=== PATIENT | female | born 1990 | race Caucasian/White ===

== ENCOUNTER → 2020-03-31 | Outpatient (CLI) | payer OTHER ==
[2020-03-31 11:47] LABS: ABSOLUTE NEUTROPHILS 5.1 thou/uL (1.4-8.2); BASOPHILS 0.3 % (0.0-2.0); EOSINOPHILS 0.9 % (0.0-3.0); HEMOGLOBIN 13.9 gm/dL (12.0-15.0); LYMPHOCYTES 30.8 % (24.0-44.0); MCH 30.5 pg (26.0-34.0); MCHC 33.8 g/dL (28.0-37.0); MCV 90.2 fL (80.0-100.0); MONOCYTES 7.4 % (1.0-8.0); PLATELET COUNT 210 thou/uL (150-400); POLYS 60.6 % (36.0-66.0); RBC 4.54 mil/uL (4.20-5.00); RDW 12.9 % (10.5-14.5); WBC 8.3 thou/uL (4.0-11.0)
[2020-03-31 12:08] LABS: ALBUMIN 4.2 g/dL (3.4-5.0); ANION GAP 10 mmol/L (7-16); BUN 10 mg/dL (7-18); CALCIUM 9.5 mg/dL (8.5-10.1); CHLORIDE 104 mmol/L (98-107); CHOLESTEROL 143 mg/dL (<200); CO2 26 mmol/L (21-32); CREATININE 0.8 mg/dL (0.6-1.0); GLUCOSE 90 mg/dL (74-106); HDL CHOLESTEROL 79 mg/dL (>40); LDL CHOLESTEROL 58 mg/dL (<100); POTASSIUM 4.3 mmol/L (3.5-5.1); SGOT 10 U/L (15-37); SGPT 20 U/L (30-65); SODIUM 140 mmol/L (136-145); TC:HDL 1.8 Ratio (Not establshd); TOTAL BILIRUBIN 0.5 mg/dL (0.2-1.0); TOTAL PROTEIN 6.7 g/dL (6.4-8.2); TRIGLYCERIDE 30 mg/dL (<150); VLDL 6 mg/dL (<40)
[2020-04-01 13:08] LABS: ANA INTERPRETATION Negative (Negative)
== END ==
LOC: LAB 10:59
PROVIDERS: ATTEND Family Medicine
DX: M79.10 Myalgia, unspecified site (principal); R42 Dizziness and giddiness; E78.5 Hyperlipidemia, unspecified; M19.90 Unspecified osteoarthritis, unspecified site

== ENCOUNTER → 2020-04-16 | Outpatient (CLI) | payer OTHER | LOC: RAD 15:17 | PROVIDERS: ATTEND Family Medicine | DX: M54.5 Low back pain (principal); G89.29 Other chronic pain ==

== ENCOUNTER → 2020-08-11 | Outpatient (CLI) | payer OTHER ==
[~2020-08-11] MED LIST: ADDERALL XR 3030 MG PO; CLONAZEPAM 0.50.5 M1 PO; FLONASE 0.05%50 MCG NARES; LAMOTRIGINE100 MG PO; MELOXICAM15 MG PO; NALTREXONE HCL50 MG PO; SPIRONOLACTONE25 MG PO; TRAZODONE HCL100 MG PO; WOMEN'S DAILY1 EACH PO; ZYRTEC10 M5 PO
== END ==
LOC: LAB 05:52
PROVIDERS: ATTEND Student in an Organized Health Care Education/Training Program
DX: Z01.812 Encounter for preprocedural laboratory examination (principal); Z20.822 Contact with and (suspected) exposure to COVID-19

== ENCOUNTER 2020-08-13 06:26 | Day surgery (SDC) | payer OTHER ==
[~2020-08-13] VITALS: Ht 167.6 cm; Wt 64.9 kg
[2020-08-13 07:07] VITALS: BP 107/71
[2020-08-13 07:20] LABS: CALCIUM 8.4 mg/dL (8.5-10.1); CREATININE 0.8 mg/dL (0.6-1.0); POTASSIUM 4.3 mmol/L (3.5-5.1)
[2020-08-13 09:00] VITALS: BP 107/71
--- NOTE | 2020-08-14 12:29 | O ---
[facility] [place] [address] OPERATIVE REPORT Name: SHINE CHEN Room #: [place] [facility] [place].R.#: [id number] Admission: 08/13/20 Attend Phys: Tonny Wilkins, Discharge: 08/13/20 Date of : 86 Report #: [id number] THIS REPORT FOR: cc: Beulah Lin MD, Nora P. MD Barnthouse,Tonny Mirza MD ~ DOC #: [id number] Tonny Wilkins MD DATE OF SERVICE: 08/13/2020 PREOPERATIVE DIAGNOSIS: Moderate cervical dysplasia, CUAUHTEMOC 2. POSTOPERATIVE DIAGNOSIS: Moderate cervical dysplasia, CUAUHTEMOC 2 with final pathology pending. PROCEDURES DONE: Colposcopy with LEEP procedure and endocervical curettage. SURGEON: Tonny Wilkins MD. ANESTHESIA: General. Also, injection of 6 mL of 1% lidocaine with 1:100,000 epinephrine locally into the cervix around the LEEP procedure site. ESTIMATED BLOOD LOSS: None. COMPLICATIONS: None. DESCRIPTION OF PROCEDURE: The patient was taken to the operating room and placed in the supine position and given adequate anesthesia. She was placed in the stirrups. Compression stockings were applied. She was prepped and draped. A timeout was performed. A weighted speculum was placed in the posterior vagina and the anterior cervix was identified and gently grasped with an Allis clamp. Then, using a colposcopy the cervix was prepped with acetic acid and then Lugol solution. She had a small acetowhite area both anteriorly and posteriorly that were nonstaining. At this point, 6 mL of 1% lidocaine with 1:100,000 epinephrine were injected circumferentially around the cervix. Then, using the LEEP the entire lesion and transformation zone were removed both in the upper and lower portion. Endocervical curettage was performed. A ball-tip cautery was then used to further vaporize tissue for wider margin circumferentially and with a smooth cone bed of approximately 7 mm. There was excellent hemostasis, but Monsel's was applied to the cervical site for added postoperative hemostasis. There were no problems. The Allis clamp was removed from the cervix. It was hemostatic. The weighted speculum was removed. The sponge, needle and instrument counts were correct according to scrub nurse and circulating nurse. She had no complications. She was placed back in the supine position and taken to the recovery room in stable condition. [address] [address] OPERATIVE REPORT Name: SHINE CHEN Room #: [place] [facility] [place]ordana#: [id number] Admission: 08/13/20 Attend Phys: Tonny Wilkins, Discharge: 08/13/20 Date of : 86 Report #: [id number] MD DHIRAJ Wiseman/PASTOR <ELECTRONICALLY SIGNED> By: Tonny Wilkins MD 08/14/20 1229 0730 0744 Tonny Wilkins MD /nt
--- NOTE | 2020-08-14 12:29 | H ---
[facility] [place] [address] HISTORY AND PHYSICAL Name: SHINE CHEN Room #: [place] [facility] [place] M.Tim.#: [id number] Admission: 08/13/20 Attend Phys: Tonny Wilkins, Discharge: 08/13/20 Date of : 86 Report #: [id number] THIS REPORT FOR: cc: Beulah Lin MD, Nora P. MD Barnthouse,Tonny Mirza MD ~ DOC #: [id number] Tonny Wilkins MD DATE OF SERVICE: 08/13/2020 She is scheduled for outpatient surgery at [facility] on 08/13/2020. REASON FOR SURGERY: Recurrent abnormal Pap smears and moderate cervical dysplasia. HISTORY OF PRESENT ILLNESS: This is a 29-year-old who was seen at the request of her primary care physician, Dr. Beulah Lin. She presented with a history of recurrent abnormal Pap smears and moderate cervical dysplasia. She has never been . She said she has had abnormal Pap smears dating back to 2014. They primarily have been atypical cells and high risk HPV. She had previous biopsies, which showed mild cervical dysplasia, CUAUHTEMOC 1. Her most recent Pap smear was in June 2020, which showed atypical cells and high risk HPV. She had a colposcopy and biopsy performed by another physician in 06/2020 and the biopsy was moderate cervical dysplasia, CUAUHTEMOC 2. The endocervical curettage was benign. Her previous messenger office had recommended a LEEP procedure and the patient would like to proceed with this procedure. Because of her insurance, she was required to go to [facility]. 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 Otherwise, she has done well. The procedure, recovery, risks, and alternative options have been fully discussed with the patient, specifically issues with her cervix in a subsequent including both incompetent cervix and possible cervical scarring, which may result in need for a . PAST MEDICAL HISTORY: She has had a history of recurrent abnormal Pap smears. PAST SURGICAL HISTORY: She has had previous cervical biopsies, but no previous surgery. She has had no and no other medical problems. SOCIAL HISTORY: She is single, a former smoker. FAMILY HISTORY: Positive for hypertension, heart disease, diabetes and breast cancer. ALLERGIES: None. [address] [address] HISTORY AND PHYSICAL Name: HSINE CHEN Room #: [place] [facility] [place]ana#: [id number] Admission: 08/13/20 Attend Phys: Tonny Wilkins, Discharge: 08/13/20 Date of : 86 Report #: [id number] CURRENT MEDICATIONS: Meloxicam 15 mg as needed, clonazepam 0.5 mg daily, naltrexone 50 mg daily, trazodone 100 mg daily, Adderall-XR 30 mg daily, spironolactone 25 mg daily. REVIEW OF SYSTEMS: She denies any fever or chills. No nausea, vomiting. No diarrhea, no dysuria, no chest pain, and no shortness of breath. PHYSICAL EXAMINATION: GENERAL: She is 65.5 inches with a weight of 138 and a BMI of 22, blood pressure 126/82. LUNGS: Clear. HEART: She had a regular rate and rhythm. NECK: Revealed no thyroid nodules. No supraclavicular adenopathy. ABDOMEN: Soft, nontender. No masses, rebound or guarding. PELVIC: Revealed no lesions of the vulva, vagina or cervix. IMPRESSION AND PLAN: Recurrent abnormal Pap smears with previous biopsies of mild cervical dysplasia and her most recent biopsy showing moderate cervical dysplasia, CUAUHTEMOC 2. After discussing all options with the patient, she has elected to proceed with a colposcopy and LEEP procedure. Again, the procedure, risks and recovery have been fully discussed with the patient. Tonny Wilkins MD MJB/PUN <ELECTRONICALLY SIGNED> By: Tonny Wilkins MD 08/14/20 1229 0839 0913 Tonny Wilkins MD /nt
--- NOTE | 2020-08-15 18:06 | PATH ---
[facility] [place] [address] PATHOLOGY RPT PROCEDURE Name: SHINE CHEN Room #: [place] [facility] [place] M.R.#: [id number] Admission: 08/13/20 Date of : 86 Discharge: 08/13/20 Report #: [id number] Path Case #: [id number] [facility] Accession Number: [id number] . 01 Material submitted: . PART A: cervix - CERVICAL CONE PART B: endocervix - ENDOCERVICAL CURETTINGS . 01 Clinical history: . LEEP COLPOSCOPY/MODERATE CERVICAL DYPLASIA . 02 Diagnosis: A. Cervix, cervical cone: - FOCAL HIGH-GRADE SQUAMOUS INTRAEPITHELIAL LESION/MODERATE SQUAMOUS DYSPLASIA (CERVICAL INTRAEPITHELIAL NEOPLASIA GRADE II). - Margins of resection free of high-grade squamous intraepithelial lesion showing reactive changes. . B. Cervix, endocervical curettings: - Strips of benign ectocervical epithelium with reactive changes. - Strips of benign endocervical epithelium with reactive changes. - Negative for dysplasia. (IUV:kailyn; 08/15/2020) QMS 08/15/2020 1407 Local . 02 Electronically signed: . Dyan Bacon MD, Pathologist NPI- [id number] . 01 Gross description: . A. The specimen is received in formalin, labeled "Shine Baileyright, cervical cone". Received is two segments of ectocervical mucosa, consistent with a LEEP specimen, measuring 1.3 x 0.6 x 0.2 and 1.5 x 0.7 x 0.3 cm in greatest dimensions. The ectocervical mucosa is pink-freeman to pink-red and glistening in appearance. The surgical margins are inked. The specimen is serially sectioned and entirely submitted in cassettes A1 and A2. . B. The specimen is received in formalin, labeled "Shine Chen, endocervical curettings". Received is light freeman mucoid material admixed with minute fragments of pale freeman tissue measuring 1.7 x 1.2 x 0.1 cm in aggregate dimensions. The specimen is filtered and entirely submitted in cassette B1. (CAA; 08/14/2020) QA/QAC 08/14/2020 1137 Local . 02 Pathologist provided ICD-10: N87.[address] [address] PATHOLOGY RPT PROCEDURE Name: ITZSHINE MATTY Room #: DEP [facility] [place] Jordana#: [id number] Admission: 08/13/20 Date of : 86 Discharge: 08/13/20 Report #: [id number] Path Case #: [id number] . 02 CPT . [id number], [id number] Specimen Comment: A courtesy copy of this report has been sent to [phone], [phone] Specimen Comment: [id number] Specimen Comment: Report sent to / DR CABAN Performed at: [address], [place] [id number] MD Anthony Montaño MD Phone: [phone] Performed at: [address] [id number] MD Dyan Bacon MD Phone: [phone]
== END 2020-08-13 09:40 | disposition home or self-care (01) ==
LOC: OR 06:26 → TBA 06:26 → OR 09:40 → EDSTATUS 12:09 → OR 14:27
PROVIDERS: ATTEND Obstetrics & Gynecology
DX: N87.1 Moderate cervical dysplasia (principal); M79.7 Fibromyalgia; F31.9 Bipolar disorder, unspecified; F41.9 Anxiety disorder, unspecified; Z98.890 Other specified postprocedural states; Z79.899 Other long term (current) drug therapy; Z87.891 Personal history of nicotine dependence; Z82.49 Family history of ischemic heart disease and other diseases of the circulatory system
CPT/HCPCS: 50010; 50101; 51732; 62110; 62900; 70005

== ENCOUNTER → 2020-08-27 | Outpatient (CLI) | payer OTHER | LOC: CAT 14:22 | PROVIDERS: ATTEND Family Medicine | DX: Z13.6 Encounter for screening for cardiovascular disorders (principal); I25.10 Atherosclerotic heart disease of native coronary artery without angina pectoris; E78.00 Pure hypercholesterolemia, unspecified ==

== ENCOUNTER → 2020-09-24 | Outpatient (CLI) | payer OTHER ==
[2020-09-24 08:54] LABS: ABSOLUTE NEUTROPHILS 6.4 thou/uL (1.4-8.2); BASOPHILS 0.3 % (0.0-2.0); EOSINOPHILS 0.2 % (0.0-3.0); HEMATOCRIT 42.5 % (37.0-47.0); HEMOGLOBIN 14.6 gm/dL (12.0-15.0); LYMPHOCYTES 26.5 % (24.0-44.0); MCH 30.9 pg (26.0-34.0); MCHC 34.4 g/dL (28.0-37.0); MCV 89.7 fL (80.0-100.0); MONOCYTES 7.4 % (1.0-8.0); PLATELET COUNT 249 thou/uL (150-400); POLYS 65.6 % (36.0-66.0); RBC 4.74 mil/uL (4.20-5.00); RDW 12.6 % (10.5-14.5); WBC 9.7 thou/uL (4.0-11.0)
[2020-09-24 09:19] LABS: ALBUMIN 4.6 g/dL (3.4-5.0); CREATININE 0.8 mg/dL (0.6-1.0); POTASSIUM 4.5 mmol/L (3.5-5.1); TOTAL BILIRUBIN 0.5 mg/dL (0.2-1.0); TOTAL PROTEIN 7.8 g/dL (6.4-8.2)
== END ==
LOC: LAB 08:29
PROVIDERS: ATTEND Family Medicine
DX: R79.89 Other specified abnormal findings of blood chemistry (principal)

== ENCOUNTER → 2020-10-15 | Outpatient (CLI) | payer OTHER ==
[~2020-10-15] VITALS: Ht 167.6 cm; Wt 63.5 kg
[~2020-10-15] MED LIST changes: +ADDERALL XR 2525 MG PO
--- NOTE | ~2020-10-15 | HPC ---
[facility] [place] [address] [place] [address] PAIN MANAGEMENT CONSULTATION Name: SHINE CHEN Room #: REG ANNA AlbertoJuanitaTimJuanita#: [id number] Admission: 10/15/20 Attend Phys: Ricki Snowden DO Discharge: Date of : 86 Report #: [id number] THIS REPORT FOR: cc: Beulah Lin MD,Ricki Smith MD, DO ~ DOC #: [id number] cc: MD Ricki Plunkett, DATE OF SERVICE: 10/15/2020 REFERRING PHYSICIAN: Beulah Lin MD CHIEF COMPLAINT: Left upper buttock pain. HISTORY OF PRESENT ILLNESS: As you know, the patient is a 29-year-old female reporting longstanding history of left upper buttock pain with intermittent radiation to the mid buttock area. She indicates pain began somewhere in 2019. She denies any specific injury or trauma. She has undergone imaging of the lumbar spine in the form of x-ray which shows no findings. The x-ray was read as normal for 29-year-old female. The patient has been trialed on muscle relaxants, undergoing continued chiropractic manipulation. She has obtained two different back braces she uses intermittently. She is doing home stretching exercises that were physician directed as well as heat and cold compresses. She even uses an acupuncture type lumbar support device, all of which provided minimal benefit. The patient has undergone no formalized physical therapy, though as indicated above she has physician-directed stretching exercises at home. She indicates pain is exacerbated with sitting for any length of time, standing for any length of time or walking long distances. It improves with lying down. She is able to localize pain directly over the upper buttock area on the left, negative on the right. Due to lack of improvement with conservative treatment options, the patient was referred to our clinic to discuss interventional therapies. The patient reports today her pain is continuous, constant with intermittent exacerbations. Pain is described as an aching, pulling throbbing, sharp and stabbing type sensation. She places current pain score at 8/10. Daily average anywhere from 6-8/10, worst pain has been is 8/10. The patient states that again pain is exacerbated with standing, walking any length of time and sitting. Pain improves with lying down, stretching, muscle relaxers and heat and cold compresses. She has been referred to our service to discuss interventional treatment options. PAST MEDICAL HISTORY: 1. ADHD. 2. [place] [address] PAIN MANAGEMENT CONSULTATION Name: SHINE CHEN Room #: REG [facility] Jordana#: [id number] Admission: 10/15/20 Attend Phys: Ricki Snowden DO Discharge: Date of : 86 Report #: [id number] 3. Bipolar type 1. 4. Carpal tunnel syndrome. 5. Fibromyalgia. 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 7. Chronic insomnia. 8. Joint pain. 9. Stimulant-induced tachycardia. PAST SURGICAL HISTORY: In 2016, right carpal tunnel release; 08/2020, LEEP procedure. SOCIAL HISTORY: The patient is a reformed smoker, but takes in vaping on a daily basis. She denies IV or illicit drug use. Admits to 2 alcohol beverages per day. 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 Working, not receiving workmen's compensation nor is she trying to obtain disability benefits. She is not in litigation in regards to pain. She is unaccompanied at today's visit. REVIEW OF SYSTEMS: Positive for decrease in appetite, fatigue, weakness, hearing loss with tinnitus, chronic sinus problems with rhinitis, nosebleeds, painful bowel movements, constipation, rectal bleeding, chronic abdominal pain, nocturia, painful menses, lightheadedness and dizziness, numbness and tingling, sensations, nervousness, insomnia, excessive thirst and urination, chronic left upper buttock pain. All other review of systems negative per 12-point review of systems other than those listed in history of present illness. Pain impact score 38/70, moderate interference of daily activities secondary to pain. IMAGING: X-ray of the lumbar spine obtained 04/16/2020 shows normal MRI views in upright flexion and extension. No evidence of fracture, dislocation or foreign bodies. No arthritic changes. PHYSICAL EXAMINATION: Attended by myself, the patient and a nurse in room. VITAL SIGNS: Blood pressure 120/77, pulse is 112, respiratory rate 14 and unlabored. The patient 100% on room air. Height 5 feet 6 inches tall, weight 140 pounds, BMI calculated 22.6. GENERAL: Well-developed, well-nourished, well-hydrated 29-year-old female appearing her stated age, placing current pain score anywhere from a 6-8/10. HEENT: normocephalic, atraumatic. Pupils equal, round and responsive to light. The patient is wearing a mask in compliance with COVID-19 regulations. LUNGS: Appear clear. There are no audible wheezes, rhonchi or rales. CARDIOVASCULAR: Regular. No appreciable gallop, no rub. ABDOMEN: Soft, nontender. EXTREMITIES: Show no clubbing, no cyanosis. No appreciable edema. MUSCULOSKELETAL: The patient has palpatory tenderness over the left sacroiliac joint, negative on the right. Lumbar provocation testing is met with no increase in overall pain including extension, rotation, lateral flexion. Seated straight leg raising negative. Supine straight leg raising negative. [facility] [address] [place] [address] PAIN MANAGEMENT CONSULTATION Name: SHINE CHEN Room #: REG [facility] IN[facility].#: [id number] Admission: 10/15/20 Attend Phys: Ricki Snowden DO Discharge: Date of : 86 Report #: [id number] test is positive for left sacroiliac joint dysfunction. Thigh thrust maneuver is positive on the left, negative right for SI joint dysfunction. Leg length discrepancy is not noted. Internal and external rotation of the hip causes no increase in overall pain, negative for intrinsic hip pathology. Muscle bulk and tone is equal and symmetrical in lower extremities. Intact to light touch from L1 through S2 dermatomes. Deep tendon reflexes are symmetrical 2+/4 at patella and Achilles. Ankle clonus negative. Babinski is negative. Gait is mildly antalgic favoring left lower extremity. ASSESSMENT: 1. Left sacroiliac joint dysfunction. 2. Left sacroiliac joint pain. 3. Chronic intractable pain. 4. Fibromyalgia. PLAN: 1. The patient has been referred to our service, discussed treatment options for chronic left upper buttock pain, intermittent left mid buttock pain. The symptoms the patient is experiencing as well as the distribution and the provocating factors that increase overall pain would appear to be due to left sacroiliac joint dysfunction. The patient is easily able to localize pain directly over the sacroiliac joint on the left, negative on the right. Provocating testing further indicates SI joint dysfunction as a source of symptoms. We discussed with the patient the treatment options we have for SI joint dysfunction. We did review the patient's x-ray imaging of her lumbar spine and please do advise the patient there are no concerning findings. After this discussion, we then discussed treatment options for SI joint dysfunction. The following was discussed with the patient today. 2. We discussed physical therapy, stretching exercises and manipulation of the SI joint via chiropractic/doctor of osteopathy manipulation. We discussed suggestions and medication management to include a baseline nonsteroidal anti-inflammatory. We discussed intraarticular SI joint injections and ultimately SI joint fusion. After reviewing the risks and benefits of all the proposed treatment options, the patient chose to continue with chiropractic manipulation of the pelvic area, specifically the left sacroiliac joint and to begin the process of authorization to undergo sacroiliac joint injection on the left side. 3. The patient was advised due to third constitution party payer restrictions authorization would have to be obtained before the patient could undergo a left sacroiliac joint injection under fluoroscopic guidance. We will begin that process of authorization immediately. Once we have achieved this authorization, we will have the patient return to undergo the first in the series of injections. We are hopeful that we can obtain this authorization quickly and have the patient return to undergo the procedure. 4. We recommend the patient continue to seek chiropractic adjustment of the pelvic area, specifically the left sacroiliac joint. Concentration has been in [address] [address] PAIN MANAGEMENT CONSULTATION Name: SHINE CHEN Room #: REG ANNA Silveira#: [id number] Admission: 10/15/20 Attend Phys: Ricki Snowden DO Discharge: Date of : 86 Report #: [id number] the lumbar spine to address the patient's symptoms and not involving the left sacroiliac joint. We have requested that the patient discuss this with her chiropractor and begin more aggressive treatment of the sacroiliac joint on the left. The patient is agreeable with this plan. 5. No medication changes made at today's visit. The patient will continue current medical therapy as prior prescribed. 6. We plan to see the patient back in followup visit once we have achieved authorization for her to undergo a left sacroiliac joint injection under fluoroscopic guidance in hopes of improving her left sacroiliac joint pain. 7. We wish to thank Dr. Beulah Lin for the referral of this patient to our clinic. We will keep you apprised of her response to treatment as we address left sacroiliac joint dysfunction and ongoing left buttock pain. Again, we wish to thank you for the opportunity to see this patient in consultation. Ricki Snowden DO JEJ/KDA By: [id number] Rciki Snowden DO /nt
[2020-10-15 08:16] VITALS: BP 120/77
--- NOTE | 2020-10-15 08:44 | NUR ---
Pain Clinic Assessment: 1. History of Osteoarthritis: Not Applicable History of Rheumatoid Arthritis: Not Applicable 2. Height: 5 ft. 6 in. 167.6 cm. Weight: 140.0 lb. oz. 63.504 kg. Patient's BMI: 22.6 3. Vital Signs: BP: 120/77 Pulse: 112 Resp: 14 Temp: 02 Sat: 100 ECG Mon: 4. Pain Intensity: 8 5. Fall Risk: Dizziness: Y Needs help standing or walking: N Fallen in the last 3 months: N Fall risk comments: 6. Patient on Blood Thinner: None 7. History of Hypertension: N 8. Opioid Therapy greater than 6 weeks: N Opiate Contract Signed: 9. Risk Assessment Tool Provided: low-3 10. Functional Assessment Tool: / 11. Recreational Drug Use: Past greater than 3 mos Drug Type: Tobacco Use: Vaping Tobacco Type: Amount or Packs/day: How Many Years: Alcohol Use: Yes Frequency: Weekly Quant: 8
== END ==
LOC: PAIN 06:55
PROVIDERS: ATTEND Anesthesiology Pain Medicine
DX: M53.3 Sacrococcygeal disorders, not elsewhere classified (principal); G89.4 Chronic pain syndrome; M79.7 Fibromyalgia; F90.9 Attention-deficit hyperactivity disorder, unspecified type; F41.9 Anxiety disorder, unspecified; F31.9 Bipolar disorder, unspecified; Z79.899 Other long term (current) drug therapy; Z79.891 Long term (current) use of opiate analgesic

== ENCOUNTER → 2020-11-04 | Outpatient (CLI) | payer OTHER ==
[~2020-11-04] VITALS: Ht 167.6 cm; Wt 62.9 kg
[2020-11-04 14:28] VITALS: BP 113/73
--- NOTE | 2020-11-04 14:37 | NUR ---
Pain Clinic Assessment: 1. History of Osteoarthritis: Not Applicable History of Rheumatoid Arthritis: Not Applicable 2. Height: 5 ft. 6 in. 167.6 cm. Weight: 138.6 lb. oz. 62.868 kg. Patient's BMI: 22.4 3. Vital Signs: BP: 113/73 Pulse: 107 Resp: 14 Temp: 02 Sat: 100 ECG Mon: 4. Pain Intensity: 5 5. Fall Risk: Dizziness: N Needs help standing or walking: N Fallen in the last 3 months: N Fall risk comments: 6. Patient on Blood Thinner: None 7. History of Hypertension: N 8. Opioid Therapy greater than 6 weeks: N Opiate Contract Signed: 9. Risk Assessment Tool Provided: low-3 10. Functional Assessment Tool: / 11. Recreational Drug Use: Past greater than 3 mos Drug Type: Tobacco Use: Vaping Tobacco Type: E-Cigarettes Amount or Packs/day: How Many Years: Alcohol Use: Yes Frequency: Quant:
--- NOTE | 2020-11-11 08:01 | HPC ---
[facility] [place] [address] PAIN MANAGEMENT CONSULTATION Name: SHINE CHEN Room #: REG ANNA AlbertoJuanitaTimJuanita#: [id number] Admission: 11/04/20 Attend Phys: Ricki Snowden DO Discharge: Date of : 86 Report #: [id number] THIS REPORT FOR: cc: Beulah Lin MD,Ricki Smith MD, DO ~ cc: Beulah Lin MD DATE OF SERVICE: 11/04/2020 REFERRING PHYSICIAN: Beulah Lin M.D. CHIEF COMPLAINT: Left low back and upper buttock pain. HISTORY OF PRESENT ILLNESS: As you know, the patient is a pleasant 29-year-old female reporting longstanding history of left low back and left upper buttock pain with intermittent radiation to the mid buttock and posterolateral thigh. This began in 2019. She denied any specific injury or trauma. X-ray imaging of the lumbar spine showed no concerning findings. She trialed conservative treatment including cerc-nwg-cjoqggt medications, prescription of muscle relaxants and chiropractic manipulation without significant improvement. She does daily home exercise routine and applies cold compresses though this has not been much of benefit. She has sought acupuncture therapy with minimal benefit as well. She was seen in consultation per the request of Dr. Lin on 10/15/2020, diagnosed with left sacroiliac joint dysfunction and provided today's appointment to undergo a left SI joint injection. It took time for the patient's third green party payer to approve the injection recommended. She returns today in followup visit to undergo the first in a series of SI joint injections. She is placing current pain score 5/10. She has had no changes in medication management since our last visit and no changes in medications that would preclude the patient from undergoing the epidural injection today. ALLERGIES: No known drug allergies. CURRENT MEDICATIONS: Adderall 25 mg once a day, fluticasone 1 spray each nostril per day, cetirizine 10 mg per day, trazodone 100 mg p.o. at bedtime, clonazepam 0.5 mg p.r.n., spironolactone 25 mg per day, naltrexone 50 mg once a day, lamotrigine 100 mg once a day. SOCIAL HISTORY: The patient is a reformed smoker, but vapes on a daily basis. Denies IV or illicit drug use. Admits to 2 alcohol beverages per day. She is employed, working, not receiving workmen's compensation, unaccompanied today. IMAGING: No new imaging available. PHYSICAL EXAMINATION: VITAL SIGNS: Blood pressure 113/73, pulse 107, respiratory rate [address] [address] PAIN MANAGEMENT CONSULTATION Name: GUSTAVOSHINE MATTY Room #: REG CLI M.R.#: [id number] Admission: 11/04/20 Attend Phys: Ricki Snowden DO Discharge: Date of : 88 Report #: [id number] unlabored. The patient 100 percent on room air. Height 5 feet 6 inches tall, weight 138.6 pounds, BMI calculated 22.4. GENERAL: Well-developed, well-nourished, well-hydrated 29-year-old female appearing stated age, pain is rated today 5/10. HEENT: Normocephalic, atraumatic. Pupils equal, round and responsive. She is wearing a mask in compliance with COVID-19 regulations. EXTREMITIES: Show no clubbing, no cyanosis. No appreciable edema. MUSCULOSKELETAL: Lower extremity strength is symmetrical 5/5, intact to light touch from L1 through S2 dermatomes. Seated straight leg raising negative. Supine straight leg raising negative. LAURA test is positive on the left. Thigh thrust maneuver is positive on the left. There is palpatory tenderness over the left SI joint, negative on the right. Internal and external rotation of the hip causes no change in overall pain. ASSESSMENT: 1. Left sacroiliac joint dysfunction. 2. Left sacroiliac joint pain. 3. Fibromyalgia. 4. Chronic intractable pain. PLAN: 1. The patient returns today in followup visit having received authorization to undergo left sacroiliac joint injection under fluoroscopic guidance to address sacroiliac joint dysfunction. It has been present for an extended period of time. The patient has been advised risks and benefits of this procedure. These risks include but are not necessarily limited to bleeding, bruising, infection, worsening pain, no relief of pain, also risk of temporary or permanent muscle weakness, temporary or permanent nerve damage, possible paralysis, post-dural puncture headache, and . The patient states she understood and wished to proceed. 2. No medication changes made at today's visit. The patient will continue current medical therapy as prior prescribed. 3. We plan to see the patient back in followup visit on an as needed basis for the next in the series of SI joint injections. We are hopeful the patient will see good benefit with this procedure. DESCRIPTION OF PROCEDURE: Left sacroiliac joint injection under fluoroscopic guidance. This is the first procedure of the first series that the patient is undergoing. After obtaining written consent, the patient was taken back to the fluoroscopy suite and placed in a prone position with a pillow under the pelvis to decrease the lumbar lordosis. The skin of the gluteal-sacral area overlying the left sacroiliac joint was prepped and draped in an aseptic fashion. [facility] [address] [place] [address] PAIN MANAGEMENT CONSULTATION Name: GUSTAVOSHINE VIERA Room #: REG [facility].#: [id number] Admission: 11/04/20 Attend Phys: Ricki Snowden DO Discharge: Date of : 86 Report #: [id number] A medial to lateral oblique projection allowed separation of the anterior and posterior branches of the joint space. The skin and subcutaneous tissue overlying the target site of injection was anesthetized using 3 mL of 1 percent lidocaine. A 22-gauge, 3-1/2-inch needle with a bent tip was directed into the inferior aspect of the sacroiliac joint using a posterior approach. A giving way at the needle hub was noted once the dorsal sacroiliac and interosseous ligaments were engaged. After negative aspiration for heme, a total of 0.5 mL of Omnipaque was injected, outlining the coin-shaped inferior recess of the joint. Provocation responses consisting of intense buttock pain were negative.. After negative aspiration for heme, 3 mL of a solution containing 1 mL 40 mg per mL, 40 mg total triamcinolone along with 2 mL of bupivacaine 0.5 percent was slowly injected. The needle was then retracted approximately fpc and the needle track was flushed with 1 mL of 1 percent lidocaine. Needle was then removed. A sterile bandage was placed over the injection site. There were no new sensory deficits present in the lower extremities. The heart rate, pulse oximetry and blood pressure were continuously monitored after the procedure. There were no apparent complications. The patient tolerated the procedure well and was carefully escorted to the recovery room in stable condition. The VAS was 5/10 before the procedure and 2/10 ten minutes after the procedure. After meeting discharge criteria, the patient was discharged home. <ELECTRONICALLY SIGNED> By: Ricki Snowden DO 11/11/20 0801 [id number] Ricki Snowden DO /nt
== END | disposition home or self-care (01) ==
LOC: PAIN 13:31
PROVIDERS: ATTEND Anesthesiology Pain Medicine
DX: M53.3 Sacrococcygeal disorders, not elsewhere classified (principal); M54.5 Low back pain; M79.7 Fibromyalgia; G89.29 Other chronic pain; Z98.890 Other specified postprocedural states; Z79.899 Other long term (current) drug therapy; Z87.891 Personal history of nicotine dependence

== ENCOUNTER → 2020-12-11 | Outpatient (CLI) | payer OTHER ==
[2020-12-11 16:22] LABS: ABSOLUTE NEUTROPHILS 5.1 thou/uL (1.4-8.2); BASOPHILS 0.4 % (0.0-2.0); EOSINOPHILS 0.5 % (0.0-3.0); HEMATOCRIT 45.6 % (37.0-47.0); MCH 30.1 pg (26.0-34.0); MCHC 32.9 g/dL (28.0-37.0); MCV 91.4 fL (80.0-100.0); MONOCYTES 7.3 % (1.0-8.0); PLATELET COUNT 254 thou/uL (150-400); POLYS 57.8 % (36.0-66.0); RBC 4.99 mil/uL (4.20-5.00); RDW 13.3 % (10.5-14.5); WBC 8.9 thou/uL (4.0-11.0)
== END ==
LOC: ULTRA 14:31
PROVIDERS: ATTEND Obstetrics & Gynecology
DX: N83.01 Follicular cyst of right ovary (principal); N83.02 Follicular cyst of left ovary; N93.9 Abnormal uterine and vaginal bleeding, unspecified

== ENCOUNTER → 2021-02-05 | Outpatient (CLI) | payer OTHER | LOC: RAD 14:57 | PROVIDERS: ATTEND Family Medicine | DX: K59.00 Constipation, unspecified (principal); M79.671 Pain in right foot; R10.84 Generalized abdominal pain ==

== ENCOUNTER → 2021-04-01 | Outpatient (CLI) | payer OTHER ==
[~2021-04-01] VITALS: Ht 167.6 cm; Wt 62.6 kg
--- NOTE | ~2021-04-01 | HPC ---
[facility] [place] [address] PAIN MANAGEMENT CONSULTATION Name: SHINE CHEN Room #: REG ANNA AlbertoJuanitaTim.#: [id number] Admission: 04/01/21 Attend Phys: Ricki Snowden DO Discharge: Date of : 88 Report #: [id number] THIS REPORT FOR: cc: Beulah Lin MD,Ricki Smith MD, DO ~ cc: Beulah Lin MD DATE OF SERVICE: 04/01/2021 CHIEF COMPLAINT: Neck pain, right upper extremity pain with paresthesias. HISTORY OF PRESENT ILLNESS: As you know, the patient is a very pleasant 30-year-old female who reports acute onset of neck pain, right upper extremity pain with paresthesias that has progressively worsened over the past 30 days. The patient has had a history of carpal tunnel syndrome, treated with a carpal tunnel release and resolution of symptoms. She began experiencing upper back pain medial to the right scapula that presented spontaneously after some activities at work. She continued to experience the symptoms, believing it to be more of a muscle spasming, but this did not respond to conservative treatment, stretching exercises and massage therapy. She then began to notice increasing neck pain on the right side, specifically with radiation of symptoms all the way down to the hand. She describes those symptoms as more of numbness, tingling, burning-like sensation. She has trialled imzb-ofj-cfqmnxf medications, rest and relaxation without much benefit. She was referred to our clinic initially for SI joint dysfunction, which has been treated successfully with injections. She contacted her primary care physician who referred the patient back to our clinic to discuss treatment options for this increasing neck pain, upper back pain, and right upper extremity pain with paresthesias. The patient denies any specific injury or trauma that may have led to symptom development. She comes to us today without imaging studies. ALLERGIES: No known drug allergies. CURRENT MEDICATIONS: Adderall XR 25 mg once a day, fluticasone 1 spray each nostril per day, cetirizine 10 mg once a day, trazodone 100 mg p.o. at bedtime, clonazepam 0.5 mg p.r.n., spironolactone 25 mg per day, naltrexone 50 mg once a day, lamotrigine 100 mg once a day. SOCIAL HISTORY: The patient is a reformed smoker, but continues to vape on a daily basis. Denies IV or illicit drug use. Admits to alcohol beverages per day. She is employed, working, not receiving workmen's compensation, unaccompanied today. IMAGING: There is no imaging available. PHYSICAL EXAMINATION: [address] [address] PAIN MANAGEMENT CONSULTATION Name: SHINE CHEN Room #: REG CLI ..#: [id number] Admission: 04/01/21 Attend Phys: Ricki Snowden DO Discharge: Date of : 88 Report #: [id number] VITAL SIGNS: Blood pressure 106/71, pulse 88, respiratory rate 18 and unlabored. The patient 100% on room air. Height 5 feet 6 inches tall. GENERAL: A well-developed, well-nourished, well-hydrated 30-year-old female appearing stated age, pain is rated today at around 8/10. HEENT: Normocephalic, atraumatic. Pupils equal, round and responsive to light. She is wearing a mask in compliance with COVID-19 regulations. EXTREMITIES: Show no clubbing, no cyanosis. No appreciable edema. MUSCULOSKELETAL: Upper extremity strength appears symmetrical 5/5, though there is slight field research assistant strength post exchange manager the first and second digits as well as the thumb on the right when compared to left. Muscle bulk and tone is equal and symmetrical in upper extremities including the intrinsic muscles of the hands. She is intact to light touch from C5 through T1 dermatomes. Spurling's test positive right, negative left. Cervical provocation testing met with increase in neck pain on the right with a rotational restriction. Deep tendon reflexes are symmetrical at biceps, brachialis and triceps. ASSESSMENT: 1. Cervical radiculopathy. 2. Cervical spondylosis with radiculopathy. PLAN: 1. Based on today's physical exam and the history, the patient provides, the distribution of symptoms the patient is experiencing pain upon, and the descriptors the patient uses in regards to pain, it would appear she is suffering from a cervical radiculopathy involving the neck and right upper extremity with radiation to the hand. The patient and I discussed today the treatment options we have available to address cervical radicular symptoms. The following was discussed with the patient today based on the physical exam findings and her description of symptoms. We discussed physical therapy, stretching exercises and traction techniques as a treatment approach. We discussed medication management, adding neuropathic medications such as amitriptyline, nortriptyline, Cymbalta, Lyrica or gabapentin in hopes of improving symptoms. We also discussed with the patient cervical epidural injection under fluoroscopic guidance as a treatment approach and ultimately surgical decompression if surgery is warranted. After reviewing the risks and benefits of all proposed treatment options, the patient chose to look towards a cervical epidural injection under fluoroscopic guidance. 2. We recommend the patient undergo x-ray imaging of the cervical spine for further evaluation. I have requested that the AP and lateral imaging of the cervical spine be obtained as quickly as possible. We will review those findings as quickly as possible. I have requested the patient to undergo the imaging study today if at all possible, so that can be reviewed quickly and we can discuss those findings at our followup visit. 3. We will begin the process of authorization for the patient to undergo a cervical epidural injection under fluoroscopic guidance. The patient has [address] [address] PAIN MANAGEMENT CONSULTATION Name: JER CHENCLAUDIA STARR [id number] Admission: 04/01/21 Attend Phys: Ricki Snowden DO Discharge: Date of : 88 Report #: [id number] trialled some conservative treatments in the past including nonsteroidal anti-inflammatories, ywob-iuz-kdhylqy medication, rest, and relaxation. As indicated above, there has been no imaging and we have requested an AP and lateral x-ray imaging to be obtained as quickly as possible. She has been doing home stretching exercises, but no formalized physical therapy to date in regards to this issue. We are hopeful that we can obtain the authorization for the patient to undergo cervical epidural injection quickly, so that we can begin to address her ongoing symptoms and alleviate some of the pain she has been experiencing as well as the paresthesias. 4. We wish to thank the referring physician for the opportunity to see the patient in consultation in regards to her cervical radicular symptoms. Again, we wish to thank them for this opportunity. By: 0815 [id number] Ricki Snowden, /nt
[2021-04-01 08:36] VITALS: BP 106/71
--- NOTE | 2021-04-01 09:02 | NUR ---
Pain Clinic Assessment: 1. History of Osteoarthritis: Not Applicable History of Rheumatoid Arthritis: Not Applicable 2. Height: 5 ft. 6 in. 167.6 cm. Weight: lb. oz. kg. Patient's BMI: 3. Vital Signs: BP: 106/71 Pulse: 88 Resp: 18 Temp: 02 Sat: 100 ECG Mon: 4. Pain Intensity: 8 5. Fall Risk: Dizziness: N Needs help standing or walking: N Fallen in the last 3 months: N Fall risk comments: 6. Patient on Blood Thinner: None 7. History of Hypertension: N 8. Opioid Therapy greater than 6 weeks: N Opiate Contract Signed: 9. Risk Assessment Tool Provided: low-3 10. Functional Assessment Tool: 11. Recreational Drug Use: Past greater than 3 mos Drug Type: Tobacco Use: Vaping Tobacco Type: Amount or Packs/day: How Many Years: Alcohol Use: Yes Frequency: Quant: 3/WEEKLY
== END ==
LOC: PAIN 06:52
PROVIDERS: ATTEND Anesthesiology Pain Medicine
DX: M47.22 Other spondylosis with radiculopathy, cervical region (principal); M79.601 Pain in right arm; Z79.899 Other long term (current) drug therapy

== ENCOUNTER → 2021-04-01 | Outpatient (CLI) | payer OTHER | LOC: RAD 08:52 | PROVIDERS: ATTEND Anesthesiology Pain Medicine | DX: M54.2 Cervicalgia (principal) ==

== ENCOUNTER → 2021-04-14 | Outpatient (CLI) | payer OTHER ==
[~2021-04-14] VITALS: Ht 167.6 cm; Wt 63.5 kg
[2021-04-14 12:41] VITALS: BP 113/77
--- NOTE | 2021-04-14 12:45 | NUR ---
Pain Clinic Assessment: 1. History of Osteoarthritis: Not Applicable History of Rheumatoid Arthritis: Not Applicable 2. Height: 5 ft. 6 in. 167.6 cm. Weight: 140.0 lb. oz. 63.504 kg. Patient's BMI: 22.6 3. Vital Signs: BP: 113/77 Pulse: 98 Resp: 18 Temp: 02 Sat: 99 ECG Mon: 4. Pain Intensity: 4 5. Fall Risk: Dizziness: N Needs help standing or walking: N Fallen in the last 3 months: N Fall risk comments: 6. Patient on Blood Thinner: None 7. History of Hypertension: N 8. Opioid Therapy greater than 6 weeks: N Opiate Contract Signed: 9. Risk Assessment Tool Provided: low-3 10. Functional Assessment Tool: / 11. Recreational Drug Use: Past greater than 3 mos Drug Type: Tobacco Use: Current Every Day Smoker Tobacco Type: Cigarettes Amount or Packs/day: 3 CIGGS How Many Years: Alcohol Use: Yes Frequency: Weekly Quant: 2
--- NOTE | 2021-04-15 09:44 | HPC ---
[facility] [place] [address] PAIN MANAGEMENT CONSULTATION Name: SHINE CHEN Room #: REG [facility] Viviane.#: [id number] Admission: 04/14/21 Attend Phys: Ricki Snowden DO Discharge: Date of : 86 Report #: [id number] THIS REPORT FOR: cc: Beulah Lin MD,Ricki Smith MD, DO ~ cc: Beulah Lin MD DATE OF SERVICE: 04/14/2021 REFERRING PHYSICIAN: Beulah Lin MD CHIEF COMPLAINT: Neck pain, right upper extremity pain with paresthesias. HISTORY OF PRESENT ILLNESS: As you know, the patient is a very pleasant 30-year-old female reporting acute onset of neck pain, right upper extremity pain with paresthesias that progressively worsened over the past 45 days. The patient indicates she has a history of carpal tunnel syndrome, treated with carpal tunnel release with resolution of symptoms. She began experiencing upper back pain medial to the right scapula that presented spontaneously after some activities at work. This progressively worsened over the past 45 days. We saw the patient in consultation on 04/01/2021, diagnosed with cervical radiculopathy and provided today's appointment to undergo a cervical epidural injection as authorizations had to be obtained. We have completed the authorization processes and the patient is now prepared to undergo a cervical epidural injection. She is placing her pain today at about 4-5/10 depending on activity. Pain begins in the neck and radiates to the right arm and down the right mid back. There have been no new injuries, no new traumas or any changes in medication management since our last visit that would preclude the patient from undergoing an epidural injection today. ALLERGIES: No known drug allergies. CURRENT MEDICATIONS: Adderall, fluticasone, cetirizine, trazodone, clonazepam, spironolactone, naltrexone, lamotrigine. SOCIAL HISTORY: The patient is a reformed smoker, but continues to vape on a daily basis. She denies IV or illicit drug use. Admits to occasional alcohol beverage. She is employed, working, not receiving workmen's compensation, unaccompanied today. IMAGING: No new imaging available. PHYSICAL EXAMINATION: VITAL SIGNS: Blood pressure 113/77, pulse is 98, respiratory rate 18 and unlabored. The patient 99% on room air. Height 5 feet 6 inches tall, weight 140 pounds, BMI calculated 22.6. [place] [address] PAIN MANAGEMENT CONSULTATION Name: SHINE CHEN Room #: REG [facility].#: [id number] Admission: 04/14/21 Attend Phys: Ricki Snowden DO Discharge: Date of : 88 Report #: [id number] GENERAL: Well-developed, well-nourished, well-hydrated 30-year-old female appearing stated age, pain is rated today 4-5/10. HEENT: Normocephalic, atraumatic. She is wearing a facemask in compliance with COVID-19 regulations and hospital policy. EXTREMITIES: Show no clubbing, no cyanosis and no appreciable edema. MUSCULOSKELETAL: Upper extremity strength remains symmetrical 5/5. There is again noted tool filer strength change on the right over the first and second digits. Spurling test is positive right, negative left. Intact to light touch from C5 to T1 dermatomes. ASSESSMENT: 1. Cervical radiculopathy. 2. Cervical spondylosis with radiculopathy. 3. Carpal tunnel syndrome of the right upper extremity. PLAN: 1. The patient returns today in followup visit to undergo cervical epidural injection under fluoroscopic guidance. We have obtained authorization for the patient to undergo that injection today. We have discussed with the patient risks and benefits of this procedure. These risks include but are not necessarily limited to bleeding, bruising, infection, worsening pain, no relief of pain, also risk of temporary or permanent muscle weakness, temporary or permanent nerve damage, possible paralysis, post-dural puncture headache, and . The patient states she understood and wished to proceed. 2. No medication changes were made at today's visit. The patient will continue current medical therapy as prior prescribed. 3. We will plan to see the patient back in followup visit in 30 days. At that time, review of the efficacy of today's cervical epidural injection to determine next in the series might be recommended. We are hopeful the patient will see good and prolonged benefit with the injection provided. DESCRIPTION OF PROCEDURE: C7-T1 cervical epidural steroid injection under fluoroscopic guidance. After obtaining written consent, the patient was taken back to fluoroscopy suite, placed in a prone position with pillows under her chest and forehead to decrease cervical lordosis. Skin overlying cervical area then prepped and draped in aseptic fashion. C7-T1 cervical interspace identified by AP fluoroscopy. Skin and subcutaneous tissue overlying target site injection anesthetized with 3 mL of 1% lidocaine. A 20-gauge 3-1/2-inch Tuohy needle advanced under fluoroscopic guidance towards the epidural space using a midline approach. Epidural space identified using loss of resistance to air technique. After negative aspiration for heme or cerebrospinal fluid, 1 mL of Omnipaque was injected. A cervical epidurogram was confirmed using both AP and oblique fluoroscopy. After negative aspiration for [facility] [address] [place] [address] PAIN MANAGEMENT CONSULTATION Name: SHINE CHEN Room #: REG CL Viviane.#: [id number] Admission: 04/14/21 Attend Phys: Ricki Snowden DO Discharge: Date of : 86 Report #: [id number] heme or cerebrospinal fluid, 5 mL of a solution containing 2 mL 40 mg per mL 80 mg total triamcinolone along with 3 mL of lidocaine, 1% injected slowly. Needle retracted skilled nursing flushed with 1 mL of 1% lidocaine and removed. Sterile bandage placed over injection site. No new motor deficits present in the upper extremities following procedure. The patient tolerated the procedure well, carefully escorted to recovery room in stable condition. No apparent complications. After meeting our discharge criteria, the patient discharged home. <ELECTRONICALLY SIGNED> By: Ricki Snowden DO 04/15/21 0944 [id number] 17 Ricki Snowden DO /nt
== END | disposition home or self-care (01) ==
LOC: PAIN 11:02
PROVIDERS: ATTEND Anesthesiology Pain Medicine
DX: M47.22 Other spondylosis with radiculopathy, cervical region (principal); M54.2 Cervicalgia; G89.29 Other chronic pain; F17.210 Nicotine dependence, cigarettes, uncomplicated; Z98.890 Other specified postprocedural states; Z79.899 Other long term (current) drug therapy

== ENCOUNTER → 2021-06-05 | Outpatient (CLI) | payer OTHER ==
[2021-06-05 10:08] LABS: ABSOLUTE NEUTROPHILS 5.8 thou/uL (1.4-8.2); BASOPHILS 0.4 % (0.0-2.0); EOSINOPHILS 0.6 % (0.0-3.0); HEMATOCRIT 42.2 % (37.0-47.0); HEMOGLOBIN 14.3 gm/dL (12.0-15.0); LYMPHOCYTES 29.7 % (24.0-44.0); MCH 30.5 pg (26.0-34.0); MCHC 33.9 g/dL (28.0-37.0); MONOCYTES 8.5 % (1.0-8.0); PLATELET COUNT 232 thou/uL (150-400); POLYS 60.8 % (36.0-66.0); RBC 4.69 mil/uL (4.20-5.00); RDW 12.9 % (10.5-14.5); WBC 9.5 thou/uL (4.0-11.0)
[2021-06-05 10:19] LABS: % SATURATION 21 % (20-39); IRON 65 ug/dL (50-170); TIBC 309 ug/dL (250-450)
[2021-06-05 10:21] LABS: ALBUMIN 4.5 g/dL (3.4-5.0); CREATININE 0.7 mg/dL (0.6-1.0); POTASSIUM 3.5 mmol/L (3.5-5.1); TOTAL BILIRUBIN 0.4 mg/dL (0.2-1.0); TOTAL PROTEIN 7.5 g/dL (6.4-8.2)
== END ==
LOC: LAB 09:33
PROVIDERS: ATTEND Family Medicine
DX: D50.9 Iron deficiency anemia, unspecified (principal); R53.83 Other fatigue; E55.9 Vitamin D deficiency, unspecified; E53.8 Deficiency of other specified B group vitamins